=== PATIENT | male | born 1970 | race Caucasian/White ===

== ENCOUNTER 2019-05-21 10:53 | Inpatient (IN) | payer OTHER ==
[2019-05-21 11:21] VITALS: BMI 32.6
--- NOTE | 2019-05-21 11:57 | HP ---
CIWA Score Nausea/Vomitin-Int. Nausea w/Dry Heave Muscle Tremors: 4-Moderate,w/Arms Extend Anxiety: 2 Agitation: 3 Paroxysmal Sweats: 1-Minimal Palms Moist Orientation: 0-Oriented Tacttile Disturbances: 0-None Auditory Disturbances: 0-None Visual Disturbances: 0-None Headache: 2-Mild CIWA-Ar Total Score: 16 - Admission Criteria OASAS Guidelines: Admission for Medically Managed Detox: Requires at least one of the followin. CIWA greater than 12 2. Seizures within the past 24 hours 3. Delirium tremens within the past 24 hours 4. Hallucinations within the past 24 hours 5. Acute intervention needed for co occurring medical disorder 6. Acute intervention needed for co occurring psychiatric disorder 7. Severe withdrawal that cannot be handled at a lower level of care (continued vomiting, continued diarrhea, abnormal vital signs) requiring intravenous medication and/or fluids 8. Admitting History and Physical - Admission History of Present Illness: 48 year old male with history of alcohol dependence with withdrawals. He is also has been drinking heavily up to 4 pints of vodka daily. He had a blackout 2 days ago and needs an eye bog worker drink every morning before the start of the day. He denies having withdrawals. Last year he completed HCV treatment and was cured. But his drinking persists and has actually gotten worse. He is on suboxone treatment and is stable on suboxone 8mg daily. He smokes 1ppd daily for 30 years. PMH: Asthma Psurg: None Psych: None He has support systems in family and friends. He is currently homeless and was 3 years ago and then rapidly deteriorated. History Source: Patient Limitations to Obtaining History: No Limitations - Past Medical History Cardiovascular: Yes: HTN - Smoking History Smoking history: Current every day smoker Have you smoked in the past 12 months: Yes Aproximately how many cigarettes per day: 10 - Alcohol/Substance Use Hx Alcohol Use: Yes (three pints Vodka daily) Admission [facility] Allergies/Adverse Reactions: Allergies Allergy/AdvReac Type Severity Reaction Status Date / Time fish derived Allergy Mild Rash Verified 05/21/19 11:16 No Known Drug Allergies Allergy Verified 05/21/19 11:16 [id number] Allergy Uncoded 05/21/19 11:16 Exam Limitations: No Limitations - Ebola screening Have you traveled outside of the country in the last 21 days: No Have you had contact with anyone from an Ebola affected area: No Have you been sick,other than usual withdrawal symptoms: No Do you have a fever: No Patient History - Patient Medical History Hx Anemia: No Hx Asthma: Yes Hx Chronic Obstructive Pulmonary Disease (COPD): No Hx Cancer: No Hx Cardiac Disorders: No Hx Congestive Heart Failure: No Hx Hypertension: No Hx Hypercholesterolemia: Yes (NO MED) Hx Pacemaker: No HX Cerebrovascular Accident: No Hx Seizures: No Hx Dementia: No Hx Diabetes: No Hx Gastrointestinal Disorders: No Hx Liver Disease: Yes (HCV treated) Hx Genitourinary Disorders: No Hx Sexually Transmitted Disorders: No Hx Renal Disease (ESRD): No Hx Thyroid Disease: No Hx Human Immunodeficiency Virus (HIV): No (negative 1 week ago) Hx Hepatitis C: Yes (treated and cured) Hx Depression: Yes Hx Suicide Attempt: No Hx Bipolar Disorder: No Hx Schizophrenia: No - Patient Surgical History Past Surgical History: Yes Hx Neurologic Surgery: No Hx Cataract Extraction: No Hx Cardiac Surgery: No Hx Lung Surgery: No Hx Breast Surgery: No Hx Breast Biopsy: No Hx Abdominal Surgery: No Hx Appendectomy: No Hx Cholecystectomy: No Hx Genitourinary Surgery: No Hx Section: No Hx Orthopedic Surgery: No Other Surgical History: surgery for pyloric stenosis as an infant Anesthesia Reaction: No - PPD History Previous Implant?: Yes Documented Results: Negative w/o proof Implanted On Prior [facility] Admission?: No Date: 09/19/14 Results: 0mm PPD to be Administered?: Yes - Smoking Cessation Smoking history: Current every day smoker Have you smoked in the past 12 months: Yes Aproximately how many cigarettes per day: 10 Hx Chewing Tobacco Use: No Initiated information on smoking cessation: Yes 'Breaking Loose' booklet given: 05/21/19 - Substances abused Alcohol Substance route: Oral Frequency: Daily Amount used: 4 pints of vodka & 12 beers Age of first use: 15 Date of last use: 05/21/19 Admission Physical Exam [facility]HS - Vital Signs Vital Signs: Vital Signs - 24 hr 05/21/19 11:15 Temperature 99.4 F Pulse Rate 96 H Respiratory 20 Rate Blood Pressure 148/91 - Physical General Appearance: Yes: Mild Distress, Alcohol on Breath, Tremorous, Irritable , Sweating HEENTM: Yes: EOMI, Hearing grossly Normal, Normal ENT Inspection, Normocephalic , Normal Voice, JUDY, Pharynx Normal, Tm's normal Respiratory: Yes: Chest Non-Tender, Lungs Clear, Normal Breath Sounds, No Respiratory Distress, No Accessory Muscle Use Neck: Yes: No masses,lesions,Nodules, Supple, Trachea in good position Breast: Yes: Within Normal Limits Cardiology: Yes: Regular Rhythm, Regular Rate, S1, S2 Abdominal: Yes: Non Tender, Soft, Increased Bowel Sounds, Protuberent Genitourinary: Yes: Within Normal Limits Back: Yes: Normal Inspection Musculoskeletal: Yes: full range of Motion, Gait Steady, Pelvis Stable Extremities: Yes: Normal Capillary Refill, Normal Inspection, Normal Range of Motion, Non-Tender Neurological: Yes: ed physicians II-XII NML intact, Fully Oriented, Alert, Motor Strength 5/5, Normal Mood/Affect, Normal Response Integumentary: Yes: Normal Color, Warm Lymphatic: Yes: Within Normal Limits Cleared for Admission S - Detox or Rehab [facility] Level of Care: Medically Managed Breathalyzer - Breathalyzer Breathalyzer: 0.006 Urine Drug Screen - Test Device Lot number: [id number] Expiration date: 12/22/20 - Control Is test valid?: Yes - Results Drug screen NEGATIVE: No Urine drug screen results: BZO-Benzodiazepines, BUP-Suboxone Inpatient Rehab Admission - Rehab Decision to Admit Inpatient rehab admission?: No
[2019-05-21] MEDS ORDERED: MAG HYDROX/AL HYDROX/SIMETH 30 ML UNIT-DOSE CUP PO PRN (12:06)
[2019-05-21] MEDS ORDERED: MELATONIN 5 MG TABLETS PO PRN (12:06)
[2019-05-21] MEDS ORDERED: BISMUTH SUBSALICYLATE 524 MG/30 ML UD PO PRN (12:06)
[2019-05-21] MEDS ORDERED: MAGNESIUM CITRATE 300 ML BOTTLE PO PRN (12:06)
[2019-05-21] MEDS ORDERED: ACETAMINOPHEN 325 MG TABLET (FP) PO PRN ×2 (12:06)
[2019-05-21] MEDS ORDERED: MENTHOL/PHENOL 1 EACH UD MM PRN (12:06)
[2019-05-21] MEDS ORDERED: MAGNESIUM HYDROX 2400MG/30ML ORAL SUSPENSION 30 ML CUP PO PRN (12:06)
[2019-05-21] MEDS ORDERED: ALBUTEROL SO4 8 GM HFA INHALER IH PRN (12:08)
[2019-05-21] MEDS: chlordiazePOXIDE HCL 25 MG CAPSULE PO SCH ×3 (13:10→22:02)
[2019-05-21 14:45] LABS: HEMATOCRIT 41.8 % (35.4-49); MCH 29.6 pg (25.7-33.7); MCHC 33.5 g/dl (32.0-35.9); MEAN CELL VOLUME 88.1 fl (80-96); MEAN PLT VOLUME 8.2 fl (7.5-11.1); PLATELET COUNT 335 K/MM3 (134-434); RBC 4.75 M/mm3 (4.00-5.60); RDW 13.8 % (11.9-15.9); WHITE BLOOD COUNT 11.3 K/mm3 (4.0-10.0)
[2019-05-21 14:55] LABS: ALBUMIN 4.2 g/dl (3.4-5.0); BILIRUBIN,TOTAL 0.3 mg/dL (0.2-1); BLOOD UREA NITROGEN 13.2 mg/dL (7-18); CALCIUM 9.4 mg/dL (8.5-10.1); CREATININE 0.8 mg/dL (0.55-1.3); POTASSIUM 4.1 mmol/L (3.5-5.1); TOT PROT 7.7 g/dl (6.4-8.2)
--- NOTE | 2019-05-21 15:20 | CONSULT ---
[facility] Psychiatric Consult - Data Date of interview: 05/21/19 Admission source: [facility] Identifying data: Revisit to [facility] and admission to [address] [place] [address] for this 48 y/o male who sought detoxification treatment. NAVIN issues : alcohol, opioid , nicotine. Patient is , no dependents, homeless, unemployed and currently supported on undisclosed means. Substance Abuse History: Discussed with the patient. Details in current [facility] report as follows : Smoking history: Current every day smoker. Have you smoked in the past 12 months: Yes. Aproximately how many cigarettes per day: 10. Hx Chewing Tobacco Use: No. Initiated information on smoking cessation: Yes. ' Breaking Loose' booklet given: 05/21/19. - Substances abused. Alcohol. Substance route: Oral. Frequency: Daily. Amount used: 4 pints of vodka & 12 beers. Age of first use: 15. Date of last use: 05/21/19 Medical History: Patient endorses good general health. Psychiatric History: No reported history of psychiatric hospitalizations. Patient is currently seeing a psychiatrist, Dr Fartun Man ([phone]), at [facility] on a weekly basis for psychotherapy + medication management (buspar 30 mg/tid and trazodone 100 mg/hs). Reportedly diagnosed with MDD, Anxiety Disorder and Sleep Disorder. Mr Jarret Chirinos denies history of suicide attempts. Physical/Sexual Abuse/Trauma History: History of heavy traumas : at age 19, the patient lost his mother to suicide ; divorce and homelessness. Additional Comment: Urine drug screen results: BZO-Benzodiazepines, BUP- Suboxone. Noted. Mental Status Exam - Mental Status Exam Alert and Oriented to: Time, Place, Person Cognitive Function: Good Patient Appearance: Well Groomed Mood: Nervous, Withdrawn Affect: Mood Congruent, Constricted Patient Behavior: Fatigued, Appropriate, Cooperative Speech Pattern: Clear Voice Loudness: Normal Thought Process: Intact, Goal Oriented Thought Disorder: Not Present Hallucinations: Denies Suicidal Ideation: Denies Homicidal Ideation: Denies Insight/Judgement: Poor Sleep: Poorly, Difficulty falling asleep Appetite: Good Gait/Station: Normal Psychiatric Findings - Problem List ([place] 1, 2,3) (1) Opioid dependence on agonist therapy Current Visit: Yes Status: Chronic Comment: . (2) Alcohol use disorder Current Visit: Yes Status: Chronic (3) Nicotine dependence Current Visit: Yes Status: Chronic Comment: . (4) Drug-induced mood disorder Current Visit: Yes Status: Chronic Comment: . (5) History of depression Current Visit: Yes Status: Chronic (6) Insomnia Current Visit: Yes Status: Chronic - Initial Treatment Plan Initial Treatment Plan: Psychoeducation. Sleep hygiene. Detoxification. AA/NA meetings. Resumed : trazodone 100 mg po hs. Side effects/benefits discussed with the patient. Mr Wheat is in agreement with this plan of care. Gave his informed consent (verbal) to MD. Declines to resume buspirone. Observation.
[2019-05-21] MEDS: NICOTINE POLACRILEX 2 MG GUM BUC PRN (19:00)
[2019-05-21] MEDS: chlordiazePOXIDE HCL 25 MG CAPSULE PO PRN (19:01)
[2019-05-21] MEDS: THIAMINE HCL 100 MG TABLET (FP) PO SCH (22:01)
[2019-05-21] MEDS: traZODone HCL 100 MG TABLET (FP) PO SCH (22:02)
[2019-05-21] MEDS: BUDESONIDE/FORMETEROL FUMARATE 80/4.5 mcg INHALER IH SCH (22:02)
[2019-05-22] MEDS: chlordiazePOXIDE HCL 25 MG CAPSULE PO SCH ×4 (05:29→22:17)
[2019-05-22] MEDS: BUDESONIDE/FORMETEROL FUMARATE 80/4.5 mcg INHALER IH SCH ×2 (10:03→21:35)
[2019-05-22] MEDS: NICOTINE 14 MG/24 HOURS TOPICAL PATCH TD SCH (10:03)
[2019-05-22] MEDS: BUPRENORPHINE/NALOXONE 4 MG/1 MG FILM PACKET SL SCH (10:03)
[2019-05-22] MEDS: PRENATAL VITAMINS W/ FOLIC ACID TABLET (FP) PO SCH (10:03)
--- NOTE | 2019-05-22 10:32 | PN ---
[facility] Progress Note Note: Psychiatry Attending's note : Approached by patient. Issue : request for buspirone. Mr Jarret jr states that he would like to restart buspar. Side effects/benefits discussed with the patient. Informed consent (verbal) given to MD. Buspar 10 mg po tid. Ordered at patient's request.
[2019-05-22] MEDS: busPIRone HCL 10 MG TABLET (FP) PO SCH ×3 (11:12→21:36)
--- NOTE | 2019-05-22 11:39 | PN ---
S CIWA - CIWA Score Nausea/Vomitin-No Nausea/No Vomiting Muscle Tremors: 2 Anxiety: 3 Agitation: 2 Paroxysmal Sweats: 3 Orientation: 0-Oriented Tacttile Disturbances: 1-Very Mild Itch/Numbness Auditory Disturbances: 0-None Visual Disturbances: 0-None Headache: 1-Very Mild CIWA-Ar Total Score: 12 S Progress Note (SOAP) Subjective: c/o headache, sweats, anxiety, and shakes. Objective: 05/22/19 11:39 Vital Signs 05/22/19 05/22/19 06:48 09:23 Temperature 97.8 F 97.4 F L Pulse Rate 72 85 Respiratory 18 18 Rate Blood Pressure 107/64 107/70 Laboratory Last Values WBC 11.3 K/mm3 (4.0-10.0) H 05/21/19 12:10 RBC 4.75 M/mm3 (4.00-5.60) 05/21/19 12:10 Hgb 14.0 GM/dL (11.7-16.9) 05/21/19 12:10 Hct 41.8 % (35.4-49) 05/21/19 12:10 MCV 88.1 fl (80-96) 05/21/19 12:10 MCH 29.6 pg (25.7-33.7) 05/21/19 12:10 MCHC 33.5 g/dl (32.0-35.9) 05/21/19 12:10 RDW 13.8 % (11.9-15.9) 05/21/19 12:10 Plt Count 335 K/MM3 (134-434) D 05/21/19 12:10 MPV 8.2 fl (7.5-11.1) 05/21/19 12:10 Sodium 139 mmol/L (136-145) 05/21/19 12:10 Potassium 4.1 mmol/L (3.5-5.1) 05/21/19 12:10 Chloride 107 mmol/L (98-107) 05/21/19 12:10 Carbon Dioxide 25 mmol/L (21-32) 05/21/19 12:10 Anion Gap 6 MMOL/L (8-16) L 05/21/19 12:10 BUN 13.2 mg/dL (7-18) 05/21/19 12:10 Creatinine 0.8 mg/dL (0.55-1.3) 05/21/19 12:10 Est GFR (CKD-EPI)AfAm 123.29 05/21/19 12:10 Est GFR (CKD-EPI)NonAf 106.38 05/21/19 12:10 Random Glucose 82 mg/dL (74-106) 05/21/19 12:10 Calcium 9.4 mg/dL (8.5-10.1) 05/21/19 12:10 Total Bilirubin 0.3 mg/dL (0.2-1) 05/21/19 12:10 AST 30 U/L (15-37) 05/21/19 12:10 ALT 44 U/L (13-61) 05/21/19 12:10 Alkaline Phosphatase 90 U/L (45-117) 05/21/19 12:10 Total Protein 7.7 g/dl (6.4-8.2) 05/21/19 12:10 Albumin 4.2 g/dl (3.4-5.0) 05/21/19 12:10 RPR Titer Nonreactive (NONREACTIVE) 05/21/19 12:10 Labs noted. Assessment: 05/22/19 11:39 AOx3, in no acute respiratory distress. Full rom, ambulating in the unit. Withdrawal symptoms. Plan: continue detox.
[2019-05-22] MEDS: chlordiazePOXIDE HCL 25 MG CAPSULE PO PRN ×2 (12:01→18:53)
[2019-05-22] MEDS: IBUPROFEN 400 MG TABLET (FP) PO PRN ×2 (12:03→18:52)
[2019-05-22] MEDS: THIAMINE HCL 100 MG TABLET (FP) PO SCH (21:36)
[2019-05-22] MEDS: traZODone HCL 100 MG TABLET (FP) PO SCH (21:36)
[2019-05-22] MEDS: METHOCARBAMOL 500 MG TABLET PO PRN (21:37)
[2019-05-23] MEDS: busPIRone HCL 10 MG TABLET (FP) PO SCH ×3 (05:42→21:30)
[2019-05-23] MEDS: chlordiazePOXIDE HCL 25 MG CAPSULE PO SCH ×4 (05:42→22:00)
[2019-05-23] MEDS: NICOTINE POLACRILEX 2 MG GUM BUC PRN (06:33)
[2019-05-23] MEDS: BUPRENORPHINE/NALOXONE 4 MG/1 MG FILM PACKET SL SCH (10:08)
[2019-05-23] MEDS: BUDESONIDE/FORMETEROL FUMARATE 80/4.5 mcg INHALER IH SCH ×2 (10:08→21:35)
[2019-05-23] MEDS: PRENATAL VITAMINS W/ FOLIC ACID TABLET (FP) PO SCH (10:08)
[2019-05-23] MEDS: NICOTINE 14 MG/24 HOURS TOPICAL PATCH TD SCH (10:08)
--- NOTE | 2019-05-23 11:59 | PN ---
[facility] CIWA - CIWA Score Nausea/Vomitin-Mild Nausea/No Vomiting Muscle Tremors: 2 Anxiety: 2 Agitation: 2 Paroxysmal Sweats: 1-Minimal Palms Moist Orientation: 0-Oriented Tacttile Disturbances: 0-None Auditory Disturbances: 0-None Visual Disturbances: 0-None Headache: 1-Very Mild CIWA-Ar Total Score: 9 S Progress Note (SOAP) Subjective: 48 years old male admitted on 05/21/19 for alcohol withdrawal sx management treating with libirum detox regimen receive suboxone today feeling ok ate breakfast discuss benefits of behavioral and psychosocial therapies Objective: 05/23/19 11:57 Vital Signs Temperature 97.3 F L 05/23/19 09:11 Pulse Rate 74 05/23/19 09:11 Respiratory Rate 18 05/23/19 09:11 Blood Pressure 125/78 05/23/19 09:11 O2 Sat by Pulse Oximetry (%) Laboratory Last Values WBC 11.3 K/mm3 (4.0-10.0) H 05/21/19 12:10 RBC 4.75 M/mm3 (4.00-5.60) 05/21/19 12:10 Hgb 14.0 GM/dL (11.7-16.9) 05/21/19 12:10 Hct 41.8 % (35.4-49) 05/21/19 12:10 MCV 88.1 fl (80-96) 05/21/19 12:10 MCH 29.6 pg (25.7-33.7) 05/21/19 12:10 MCHC 33.5 g/dl (32.0-35.9) 05/21/19 12:10 RDW 13.8 % (11.9-15.9) 05/21/19 12:10 Plt Count 335 K/MM3 (134-434) D 05/21/19 12:10 MPV 8.2 fl (7.5-11.1) 05/21/19 12:10 Sodium 139 mmol/L (136-145) 05/21/19 12:10 Potassium 4.1 mmol/L (3.5-5.1) 05/21/19 12:10 Chloride 107 mmol/L (98-107) 05/21/19 12:10 Carbon Dioxide 25 mmol/L (21-32) 05/21/19 12:10 Anion Gap 6 MMOL/L (8-16) L 05/21/19 12:10 BUN 13.2 mg/dL (7-18) 05/21/19 12:10 Creatinine 0.8 mg/dL (0.55-1.3) 05/21/19 12:10 Est GFR (CKD-EPI)AfAm 123.29 05/21/19 12:10 Est GFR (CKD-EPI)NonAf 106.38 05/21/19 12:10 Random Glucose 82 mg/dL (74-106) 05/21/19 12:10 Calcium 9.4 mg/dL (8.5-10.1) 05/21/19 12:10 Total Bilirubin 0.3 mg/dL (0.2-1) 05/21/19 12:10 AST 30 U/L (15-37) 05/21/19 12:10 ALT 44 U/L (13-61) 05/21/19 12:10 Alkaline Phosphatase 90 U/L (45-117) 05/21/19 12:10 Total Protein 7.7 g/dl (6.4-8.2) 05/21/19 12:10 Albumin 4.2 g/dl (3.4-5.0) 05/21/19 12:10 RPR Titer Nonreactive (NONREACTIVE) 05/21/19 12:10 lab noted wbc elevation asymptomatic patient agrees to follow up with suboxone provider in the community 05/23/19 11:59 Assessment: 05/23/19 11:59 alcohol withdrawal Plan: librium regimen
[2019-05-23] MEDS: chlordiazePOXIDE HCL 25 MG CAPSULE PO PRN ×2 (12:01→18:48)
[2019-05-23] MEDS: hydrOXYzine PAMOATE 25 MG CAPSULE (FP) PO PRN ×2 (13:59→19:48)
[2019-05-23] MEDS: METHOCARBAMOL 500 MG TABLET PO PRN (16:55)
[2019-05-23] MEDS: traZODone HCL 100 MG TABLET (FP) PO SCH (21:30)
[2019-05-23] MEDS: THIAMINE HCL 100 MG TABLET (FP) PO SCH (21:30)
[2019-05-24] MEDS ORDERED: chlordiazePOXIDE HCL 10 MG CAPSULE PO PRN
[2019-05-24] MEDS: chlordiazePOXIDE HCL 10 MG CAPSULE PO SCH ×4 (05:31→22:21)
[2019-05-24] MEDS: busPIRone HCL 10 MG TABLET (FP) PO SCH ×3 (05:31→22:00)
[2019-05-24] MEDS: BUPRENORPHINE/NALOXONE 4 MG/1 MG FILM PACKET SL SCH (10:16)
[2019-05-24] MEDS: NICOTINE 14 MG/24 HOURS TOPICAL PATCH TD SCH (10:20)
[2019-05-24] MEDS: METHOCARBAMOL 500 MG TABLET PO PRN (11:40)
[2019-05-24] MEDS: hydrOXYzine PAMOATE 25 MG CAPSULE (FP) PO PRN ×2 (11:40→16:59)
[2019-05-24] MEDS: PRENATAL VITAMINS W/ FOLIC ACID TABLET (FP) PO SCH (11:41)
[2019-05-24] MEDS: BUDESONIDE/FORMETEROL FUMARATE 80/4.5 mcg INHALER IH SCH ×2 (11:41→22:00)
--- NOTE | 2019-05-24 12:14 | PN ---
S CIWA - CIWA Score Nausea/Vomitin-No Nausea/No Vomiting Muscle Tremors: 2 Anxiety: 2 Agitation: 1-Slight > Activity Paroxysmal Sweats: 1-Minimal Palms Moist Orientation: 0-Oriented Tacttile Disturbances: 0-None Auditory Disturbances: 0-None Visual Disturbances: 0-None Headache: 0-None Present CIWA-Ar Total Score: 6 [facility] Progress Note (SOAP) Subjective: 48 years old male admitted with 05/21/19 for alcohol withdrawal sx management treating with libirum detox regimen requests to be discharge on 05/25/19 one day early than estimated date of 05/26/19 reports feeling better less tremor mild anxiety case discussed with the nurse routine discharge is appropriated patient prefers to leave the detox around 6 am tomorrow Objective: 05/24/19 12:16 Vital Signs Temperature 99.8 F H 05/24/19 09:03 Pulse Rate 101 H 05/24/19 09:03 Respiratory Rate 18 05/24/19 09:03 Blood Pressure 134/81 05/24/19 09:03 O2 Sat by Pulse Oximetry (%) Laboratory Last Values WBC 11.3 K/mm3 (4.0-10.0) H 05/21/19 12:10 RBC 4.75 M/mm3 (4.00-5.60) 05/21/19 12:10 Hgb 14.0 GM/dL (11.7-16.9) 05/21/19 12:10 Hct 41.8 % (35.4-49) 05/21/19 12:10 MCV 88.1 fl (80-96) 05/21/19 12:10 MCH 29.6 pg (25.7-33.7) 05/21/19 12:10 MCHC 33.5 g/dl (32.0-35.9) 05/21/19 12:10 RDW 13.8 % (11.9-15.9) 05/21/19 12:10 Plt Count 335 K/MM3 (134-434) D 05/21/19 12:10 MPV 8.2 fl (7.5-11.1) 05/21/19 12:10 Sodium 139 mmol/L (136-145) 05/21/19 12:10 Potassium 4.1 mmol/L (3.5-5.1) 05/21/19 12:10 Chloride 107 mmol/L (98-107) 05/21/19 12:10 Carbon Dioxide 25 mmol/L (21-32) 05/21/19 12:10 Anion Gap 6 MMOL/L (8-16) L 05/21/19 12:10 BUN 13.2 mg/dL (7-18) 05/21/19 12:10 Creatinine 0.8 mg/dL (0.55-1.3) 05/21/19 12:10 Est GFR (CKD-EPI)AfAm 123.29 05/21/19 12:10 Est GFR (CKD-EPI)NonAf 106.38 05/21/19 12:10 Random Glucose 82 mg/dL (74-106) 05/21/19 12:10 Calcium 9.4 mg/dL (8.5-10.1) 05/21/19 12:10 Total Bilirubin 0.3 mg/dL (0.2-1) 05/21/19 12:10 AST 30 U/L (15-37) 05/21/19 12:10 ALT 44 U/L (13-61) 05/21/19 12:10 Alkaline Phosphatase 90 U/L (45-117) 05/21/19 12:10 Total Protein 7.7 g/dl (6.4-8.2) 05/21/19 12:10 Albumin 4.2 g/dl (3.4-5.0) 05/21/19 12:10 RPR Titer Nonreactive (NONREACTIVE) 05/21/19 12:10 lab noted patient agrees to follow up with [facility] for wbc elevation Assessment: 05/24/19 12:17 alcohol withdrawal Plan: librium regimen
[2019-05-24] MEDS: traZODone HCL 100 MG TABLET (FP) PO SCH (22:00)
[2019-05-24] MEDS: THIAMINE HCL 100 MG TABLET (FP) PO SCH (22:02)
[2019-05-25] MEDS ORDERED: chlordiazePOXIDE HCL 10 MG CAPSULE PO SCH (05:00)
[2019-05-25] MEDS: busPIRone HCL 10 MG TABLET (FP) PO SCH (05:40)
[2019-05-25 06:09] VITALS: BP 138/85; PULSE 101; TEMP 97.8
[2019-05-25] MEDS: METHOCARBAMOL 500 MG TABLET PO PRN (06:19)
--- NOTE | 2019-05-25 14:29 | DS ---
[facility] Detox Discharge Summary Admission Date: 05/21/19 Discharge Date: 05/25/19 - History Present History: Alcohol Dependence Additional Comments: 48 years old male admitted on 05/21/19 for alcohol withdrawal sx management [facility] patient requests to be discharged a day early than estimated discharged day of case discussed with the nurse routine discharge is appropriated patient left the detox around 7 am today verse writer has not assessed nor evaluated the patient - Physical Exam Results Vital Signs: Vital Signs Temperature 97.8 F 05/25/19 06:09 Pulse Rate 101 H 05/25/19 06:09 Respiratory Rate 18 05/25/19 06:09 Blood Pressure 138/85 05/25/19 06:09 O2 Sat by Pulse Oximetry (%) Pertinent Admission Physical Exam Findings: alcohol withdrawal Laboratory Last Values WBC 11.3 K/mm3 (4.0-10.0) H 05/21/19 12:10 RBC 4.75 M/mm3 (4.00-5.60) 05/21/19 12:10 Hgb 14.0 GM/dL (11.7-16.9) 05/21/19 12:10 Hct 41.8 % (35.4-49) 05/21/19 12:10 MCV 88.1 fl (80-96) 05/21/19 12:10 MCH 29.6 pg (25.7-33.7) 05/21/19 12:10 MCHC 33.5 g/dl (32.0-35.9) 05/21/19 12:10 RDW 13.8 % (11.9-15.9) 05/21/19 12:10 Plt Count 335 K/MM3 (134-434) D 05/21/19 12:10 MPV 8.2 fl (7.5-11.1) 05/21/19 12:10 Sodium 139 mmol/L (136-145) 05/21/19 12:10 Potassium 4.1 mmol/L (3.5-5.1) 05/21/19 12:10 Chloride 107 mmol/L (98-107) 05/21/19 12:10 Carbon Dioxide 25 mmol/L (21-32) 05/21/19 12:10 Anion Gap 6 MMOL/L (8-16) L 05/21/19 12:10 BUN 13.2 mg/dL (7-18) 05/21/19 12:10 Creatinine 0.8 mg/dL (0.55-1.3) 05/21/19 12:10 Est GFR (CKD-EPI)AfAm 123.29 05/21/19 12:10 Est GFR (CKD-EPI)NonAf 106.38 05/21/19 12:10 Random Glucose 82 mg/dL (74-106) 05/21/19 12:10 Calcium 9.4 mg/dL (8.5-10.1) 05/21/19 12:10 Total Bilirubin 0.3 mg/dL (0.2-1) 05/21/19 12:10 AST 30 U/L (15-37) 05/21/19 12:10 ALT 44 U/L (13-61) 05/21/19 12:10 Alkaline Phosphatase 90 U/L (45-117) 05/21/19 12:10 Total Protein 7.7 g/dl (6.4-8.2) 05/21/19 12:10 Albumin 4.2 g/dl (3.4-5.0) 05/21/19 12:10 RPR Titer Nonreactive (NONREACTIVE) 05/21/19 12:10 lab noted - Treatment Hospital Course: Detox Protocol Followed, Detoxed Safely, Responded well, Discharged Condition Good, Rehab Referral Accepted Patient has Accepted a Rehab Referral to: [facility] - Medication Discharge Medications: Ambulatory Orders Albuterol Sulfate Inhaler - [Ventolin HFA Inhaler -] 0 inh IH Q4H PRN #1 inh Budesonide/Formeterol Fumarate [SYMBICORT 80/4.5mcg -] 2 inh IH BID #1 inhaler 11/21/14 Buprenorphine HCl/Naloxone HCl [Suboxone 4 mg-1 mg Sl Film] 1 each SL DAILY - Diagnosis (1) Alcohol dependence, continuous Status: Acute (2) Asthma Status: Chronic (3) COPD (chronic obstructive pulmonary disease) Status: Chronic Qualifiers: COPD type: emphysema Emphysema type: unspecified Qualified Code(s): J43.9 - Emphysema, unspecified (4) Encounter for monitoring Suboxone maintenance therapy Status: Chronic (5) Hepatitis C carrier Status: Chronic (6) Nicotine dependence Status: Acute Qualifiers: Nicotine product type: cigarettes Substance use status: in withdrawal Qualified Code(s): F17.213 - Nicotine dependence, cigarettes, with withdrawal - AMA Did Patient Leave Against Medical Advice: No
[2019-05-26] MEDS ORDERED: chlordiazePOXIDE HCL 10 MG CAPSULE PO ONE (05:00)
== END 2019-05-25 07:15 | disposition home or self-care (01) | DRG 773 ==
LOC: YASAS 10:53 → Y3N 12:23
PROVIDERS: ADMIT Allergy & Immunology; ATTEND Allergy & Immunology
PROC: HZ2ZZZZ Detoxification Services for Substance Abuse Treatment (ICD-10-PCS; principal; 2019-05-21)
DX: F10.230 Alcohol dependence with withdrawal, uncomplicated (principal); F11.20 Opioid dependence, uncomplicated; F17.213 Nicotine dependence, cigarettes, with withdrawal; F19.24 Other psychoactive substance dependence with psychoactive substance-induced mood disorder; J45.909 Unspecified asthma, uncomplicated; J43.9 Emphysema, unspecified; B18.2 Chronic viral hepatitis C; G47.00 Insomnia, unspecified; Z91.013 Allergy to seafood; Z59.0 Homelessness
CPT/HCPCS: 36415; 80053; 85027; 86593